=== PATIENT | female | born 1975 | race Caucasian/White ===

== ENCOUNTER 2018-07-23 22:51 | Observation (INO) | payer BC ==
[2018-07-23] MEDS ORDERED: Al Hydrox/Mg Hydrox/Simet LIQ* 30 ML UDC PO ONE (23:14)
[2018-07-23] MEDS ORDERED: Famotidine TAB* 20 MG PO ONE (23:14)
[2018-07-23] MEDS ORDERED: Sucralfate TAB* 1 GM PO ONE (23:14)
[2018-07-23 23:34] LABS: ABS Eosinophils 0.1 10^3/ul (0-0.6); ABS Lymphocytes 0.6 10^3/ul (1.0-4.8); ABS Monocytes 0.6 10^3/ul (0-0.8); ABS Neutrophils 6.2 10^3/ul (1.5-7.7); Eosinophil % 1.4 %; Hematocrit 41 % (35-47); Hemoglobin 13.8 g/dL (12.0-16.0); Lymphocyte % 8.5 %; Mean Corpuscular HGB Conc 34 g/dL (31-36); Mean Corpuscular Hemoglobin 31 pg (27-31); Mean Corpuscular Volume 91 fL (80-97); Nucleated Red Blood Cells % 0.1; Platelet Count 270 10^3/uL (150-450); Red Cell Distribution Width 14 % (10.5-15); White Blood Count 7.6 10^3/uL (3.5-10.8)
[2018-07-23 23:40] LABS: INR 0.96 (0.82-1.09)
[2018-07-23 23:54] LABS: ALT 352 U/L (7-52); AST 75 U/L (13-39); Albumin 4.5 g/dL (3.2-5.2); Albumin/Globulin Ratio 1.6 (1-3); Alkaline Phosphatase 136 U/L (34-104); Anion Gap 5 mmol/L (2-11); BUN/Creatinine Ratio 14.3 (8-20); Blood Urea Nitrogen 13 mg/dL (6-24); C Reactive Protein 3.12 mg/L (<8.01); CO2 Carbon Dioxide 27 mmol/L (22-32); Calcium 9.5 mg/dL (8.6-10.3); Chloride 107 mmol/L (101-111); EGFR African American 82.4 (>60); EGFR Non-African American 68.1 (>60); Globulin 2.8 g/dL (2-4); Glucose 107 mg/dL (70-100); Potassium 3.9 mmol/L (3.5-5.0); Sodium 139 mmol/L (135-145); Total Protein 7.3 g/dL (6.4-8.9)
[2018-07-24] LABS: HCG Pregnancy < 0.60 mIU/mL
--- NOTE | 2018-07-24 00:05 | ED ---
GI/ HPI - HPI Summary HPI Summary: Patient is a 42 year old female who presents today with intermittent RUQ pain and nausea x 3 weeks that occurs after eating fatty meals. Pain radiates intermittently to her back. She developed lower abdominal pain today with mild lightheadedness and near-syncope, prompting her to come to the ED. She denies fever, vomiting, or diarrhea. She denies family hx of gallbladder disease. No prior hx of pancreatitis or hepatitis. She drinks alcohol occasionally and last drank alcohol a few days ago. Pt denies any prior abdominal surgeries. - History of Current Complaint Chief Complaint: EDAbdPain Time Seen by Provider: 07/23/18 23:59 Stated Complaint: ABD PAIN, LIGHT HEADED, ARM NUMBNESS PER PT Hx Obtained From: Patient Onset/Duration: Started Weeks Ago - 3 Timing: Intermittent Severity: Mild Current Severity: None Pain Intensity: 0 Associated Signs and Symptoms: Positive: Dizziness, Nausea. Negative: Hematemesis, Back Pain, Syncope, Vomiting, Diarrhea Aggravating Factor(s): Food - Allergy/Home Medications Allergies/Adverse Reactions: Allergies Allergy/AdvReac Type Severity Reaction Status Date / Time No Known Allergies Allergy Verified 07/23/18 23:12 PMH/Surg Hx/FS Hx/Imm Hx Endocrine/Hematology History: Denies: Hx Diabetes GI History: Denies: Hx Gall Bladder Disease, Hx Gastroesophageal Reflux Disease, Other GI Disorders - pancreatitis, hepatitis Psychiatric History: Reports: Hx Anxiety Infectious Disease History: No Infectious Disease History: Denies: Traveled Outside the [place] in Last 30 Days - Family History Family History: No gallbladder disease. - Social History Occupation: Employed Full-time Alcohol Use: Occasionally Hx Substance Use: No Hx Tobacco Use: No Review of Systems Negative: Fever Positive: Abdominal Pain, Nausea. Negative: Vomiting, Diarrhea Positive: Myalgia - back pain Neurological: Other - Lightheadedness. Positive: Syncope - near All Other Systems Reviewed And Are Negative: Yes Physical Exam Triage Information Reviewed: Yes Vital Signs On Initial Exam: Initial Vitals Temp Pulse Resp BP Pulse Ox 98.6 F 65 16 164/81 100 07/23/18 23:05 07/23/18 23:05 07/23/18 23:05 07/23/18 23:05 07/23/18 23:05 Vital Signs Reviewed: Yes Appearance: Positive: Well-Appearing, No Pain Distress Skin: Positive: Warm Head/Face: Positive: Normal Head/Face Inspection Eyes: Positive: Normal ENT: Positive: Normal ENT inspection Respiratory/Lung Sounds: Positive: Clear to Auscultation Cardiovascular: Positive: RRR. Negative: Murmur, Rub Abdomen Description: Positive: Nontender, No Organomegaly, Soft. Negative: Distended, McBurney's Point Tenderness, Peritoneal Signs Bowel Sounds: Positive: Present Musculoskeletal: Positive: Normal Neurological: Positive: Normal Psychiatric: Positive: Normal Diagnostics - Vital Signs Vital Signs Temp Pulse Resp BP Pulse Ox 07/23/18 23:05 98.6 F 65 16 164/81 100 - Laboratory Lab Results: Lab Results 07/23/18 07/23/18 07/23/18 Range/Units 23:26 23:26 23:26 WBC 7.6 (3.5-10.8) 10^3/uL RBC 4.50 (3.70-4.87) 10^6 /uL Hgb 13.8 (12.0-16.0) g/dL Hct 41 (35-47) % MCV 91 (80-97) fL MCH 31 (27-31) pg MCHC 34 (31-36) g/dL RDW 14 (10.5-15) % Plt Count 270 (150-450) 10^3/uL MPV 7.0 L (7.4-10.4) fL Neut % (Auto) 81.6 % Lymph % (Auto) 8.5 % [place] % (Auto) 7.9 % Eos % (Auto) 1.4 % Baso % (Auto) 0.6 % Absolute Neuts (auto) 6.2 (1.5-7.7) 10^3/ul Absolute Lymphs (auto) 0.6 L (1.0-4.8) 10^3/ul Absolute Monos (auto) 0.6 (0-0.8) 10^3/ul Absolute Eos (auto) 0.1 (0-0.6) 10^3/ul Absolute Basos (auto) 0.0 (0-0.2) 10^3/ul Absolute Nucleated RBC 0.0 10^3/ul Nucleated RBC % 0.1 INR (Anticoag Therapy) (0.82-1.09) Sodium 139 (135-145) mmol/L Potassium 3.9 (3.5-5.0) mmol/L Chloride 107 (101-111) mmol/L Carbon Dioxide 27 (22-32) mmol/L Anion Gap 5 (2-11) mmol/L BUN 13 (6-24) mg/dL Creatinine 0.91 (0.51-0.95) mg/dL Est GFR ( Amer) 82.4 (>60) Est GFR (Non-Af Amer) 68.1 (>60) BUN/Creatinine Ratio 14.3 (8-20) Glucose 107 H (70-100) mg/dL Lactic Acid 0.6 (0.5-2.0) mmol/L Calcium 9.5 (8.6-10.3) mg/dL Total Bilirubin 0.60 (0.2-1.0) mg/dL AST 75 H (13-39) U/L ALT 352 H (7-52) U/L Alkaline Phosphatase 136 H (34-104) U/L Troponin I 0.00 (<0.04) ng/mL C-Reactive Protein 3.12 (<8.01) mg/L Total Protein 7.3 (6.4-8.9) g/dL Albumin 4.5 (3.2-5.2) g/dL Globulin 2.8 (2-4) g/dL Albumin/Globulin Ratio 1.6 (1-3) Lipase 59 (11.0-82.0) U/L Beta HCG, Quant < 0.60 mIU/mL 07/23/18 Range/Units 23:26 WBC (3.5-10.8) 10^3/uL RBC (3.70-4.87) 10^6 /uL Hgb (12.0-16.0) g/dL Hct (35-47) % MCV (80-97) fL MCH (27-31) pg MCHC (31-36) g/dL RDW (10.5-15) % Plt Count (150-450) 10^3/uL MPV (7.4-10.4) fL Neut % (Auto) % Lymph % (Auto) % [place] % (Auto) % Eos % (Auto) % Baso % (Auto) % Absolute Neuts (auto) (1.5-7.7) 10^3/ul Absolute Lymphs (auto) (1.0-4.8) 10^3/ul Absolute Monos (auto) (0-0.8) 10^3/ul Absolute Eos (auto) (0-0.6) 10^3/ul Absolute Basos (auto) (0-0.2) 10^3/ul Absolute Nucleated RBC 10^3/ul Nucleated RBC % INR (Anticoag Therapy) 0.96 (0.82-1.09) Sodium (135-145) mmol/L Potassium (3.5-5.0) mmol/L Chloride (101-111) mmol/L Carbon Dioxide (22-32) mmol/L Anion Gap (2-11) mmol/L BUN (6-24) mg/dL Creatinine (0.51-0.95) mg/dL Est GFR ( Amer) (>60) Est GFR (Non-Af Amer) (>60) BUN/Creatinine Ratio (8-20) Glucose (70-100) mg/dL Lactic Acid (0.5-2.0) mmol/L Calcium (8.6-10.3) mg/dL Total Bilirubin (0.2-1.0) mg/dL AST (13-39) U/L ALT (7-52) U/L Alkaline Phosphatase (34-104) U/L Troponin I (<0.04) ng/mL C-Reactive Protein (<8.01) mg/L Total Protein (6.4-8.9) g/dL Albumin (3.2-5.2) g/dL Globulin (2-4) g/dL Albumin/Globulin Ratio (1-3) Lipase (11.0-82.0) U/L Beta HCG, Quant mIU/mL Result Diagrams: 07/23/18 23:26 07/23/18 23:26 Lab Statement: Any lab studies that have been ordered have been reviewed, and results considered in the medical decision making process. - Ultrasound No standard instances Ultrasound Interpretation Completed By: Radiologist Summary of Ultrasound Findings: Gallbladder US: 1. Cholelithiasis with 2 large stones and some sludge. There is no gallbladder wall thickening and there is a negative sono De Luna's sign. 2. Otherwise negative right upper quadrant sonogram. ED physician reviewed radiology report. - EKG 23:20 Cardiac Rate: NL - 67 bpm EKG Rhythm: Sinus Rhythm ST Segment: Normal Summary of EKG Findings: Nl axis, nl intervals GIGU Course/Dx - Course Course Of Treatment: Patient with intermittent abdominal pain over the last several days with GI upset. Her LFTs are elevated and gallbladder ultrasound is consistent with gallstones and sludge. The common bile duct is upper limit of normal but there is no definite obstruction. Discussed with GI who would like to admit and have MRCP in the morning. Patient is otherwise stable at this point without pain. - Diagnoses Differential Diagnoses - Female: Other - Cholelithiasis, cholecystitis, cholangitis, choledocholithiasis, peptic ulcer disease, gastritis, pancreatitis Provider Diagnoses: Choledocholithiasis, Elevated LFTs - Physician Notifications Discussed Care Of Patient With: Kyle Wilkins Time Discussed With Above Provider: 00:47 Instructed by Provider To: Other - Have the pt admitted for MRCP. At 1:00 Dr. Carrasco accepts pt for admission. Discharge - Sign-Out/Discharge Documenting (check all that apply): Patient Departure - Admit Patient Received Moderate/Deep Sedation with Procedure: No - Discharge Plan Condition: Stable Disposition: ADMITTED TO [facility] Referrals: Robe Parnell MD [Primary Care Provider] - - Billing Disposition and Condition Condition: STABLE Disposition: Admitted to [facility] - Attestation Statements Document Initiated by Scribe: Yes Documenting Scribe: Amanda Escalante Provider For Whom John is Documenting (Include Credential): Alber Goins MD Scribe Attestation: Amanda Angel, scribed for Alber Goins MD on 07/24/18 at 0338. Scribe Documentation Reviewed: Yes Provider Attestation: The documentation as recorded by the Amanda mills accurately reflects the service I personally performed and the decisions made by me, Alber Goins MD Status of Scribe Document: Viewed
[2018-07-24] MEDS ORDERED: NS 0.9% 1000 ML** 1,000 ML IV SCH (01:00)
[2018-07-24] MEDS ORDERED: Ibuprofen TAB* 600 MG PO PRN (03:14)
[2018-07-24] MEDS ORDERED: Ondansetron INJ* 2 MG/ML VIAL IV PRN (03:16)
[2018-07-24 04:55] LABS: Albumin 4.1 g/dL (3.2-5.2); Albumin/Globulin Ratio 1.6 (1-3); Globulin 2.5 g/dL (2-4); Indirect Bilirubin 0.6 mg/dL (0.3-1.0); Total Bilirubin 0.8 mg/dL (0.2-1.0); Total Protein 6.6 g/dL (6.4-8.9); Urine Appearance Cloudy; Urine Bacteria Absent (Absent); Urine Bilirubin Negative (Negative); Urine Blood 2+ (Negative); Urine Color Yellow; Urine Glucose Negative (Negative); Urine Ketones Trace (Negative); Urine Nitrite Negative (Negative); Urine Protein Negative (Negative); Urine Red Blood Cell 1+(3-5/hpf) (Absent); Urine Specific Gravity 1.004 (1.010-1.030); Urine Squamous Epithelial Cell Present (Absent); Urine Urobilinogen Negative (Negative); Urine White Blood Cell Trace(0-5/hpf) (Absent)
--- NOTE | 2018-07-24 05:51 | HP ---
HISTORY AND PHYSICAL: DATE OF ADMISSION: 07/24/18 PRIMARY CARE PROVIDER: Dr. Dias, [facility]. HEALTHCARE PROXY: Designated as Torrie Lopes, is a friend. CODE STATUS: Full. SOURCE OF INFORMATION: History obtained from interview with the patient and discussion with ED physician. RELIABILITY: Very good. CHIEF COMPLAINT: Abdominal pain. HISTORY OF PRESENT ILLNESS: This is a 42-year-old female with 1-1/2 weeks of epigastric pain and back pain, felt unrelated, never had episode of indigestion , but had first episode of this epigastric pain, felt uncomfortable, could not sleep, was steady, described as an aching and intense, felt like maybe this could have been digestion, but it was not associated with nausea or vomiting. She went to sleep. This was resolved after waking up. This occurred 2 additional times in the last 1-1/2 weeks, described as an aching pain lasting for several hours. The last 2 episodes were less intense; neither was associated with nausea, vomiting, or diarrhea. She associates the prior 2 episodes with food intake. The second episode was associated with eating nachos and the third after eating eggs, tarts, and sausages on Sunday morning prior to presentation which she indicates were all fatty meals. She denies any weight loss or alcohol nor heavy alcohol intake. After the last events, 4 days prior to presentation, she felt her stomach was "off" with a mild pain consistently, worse with eating. She called her primary care provider, who was concerned for a cardiac event and directed her to present to the emergency room. 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 She was warned that she could by the [facility] SPECIALIST at [facility]. She was out later in the evening of presentation, felt lightheaded, similar to episodes in the past which were followed by fainting. She did not faint this time; however, did feel quite anxious, particularly in the setting of recent conversation with her PCP's office advising her of the risks of not proceeding to the emergency room. At the time of their conversation, she thought she may have had a mini panic attack and presented to the emergency room after her episode of feeling lightheaded while out. In the emergency room, she had no pain. She was found to have elevated LFTs with an ALT out of proportion to AST as well as an elevated alk phos. There was no evidence of biliary stasis. Her total bilirubin was 0.60. There was a conversation between Dr. Goins and Dr. Wilkins from gastroenterology. The recommendation per Dr. Goins from gastroenterology was to admit to the hospital for an MRCP. Plan further delineated below. PAST MEDICAL HISTORY: Includes anxiety and significant depression. She has an IUD. PAST SURGICAL HISTORY: No history of surgeries. MEDICATIONS: P.r.n. propranolol and clonazepam for anxiety, propranolol for social anxiety when talking to crowds. She takes B complex vitamin, holy basil capsules, and vitamin D [id number]. ALLERGIES: No known drug allergies. FAMILY HISTORY: Paternal grandfather with CVA and CAD. Maternal grandfather with CAD. SOCIAL HISTORY: No tobacco. Drinks between 1 and 2 bottles of wine per week. She is a teacher in [employer]. REVIEW OF SYSTEMS: As per HPI; otherwise, all other systems negative. PHYSICAL EXAMINATION GENERAL: Sitting up in bed, interactive, pleasant, in no apparent distress. VITAL SIGNS: In the emergency room, 164/81, heart rate 65, respiratory rate 16 , she is 100% on room air, T-max 98.6 degrees Fahrenheit. HEENT: Oropharynx is clear. She has moist mucous membranes. Sclerae are anicteric. She has non-elevated JVD. She has no cervical or supraclavicular lymphadenopathy. LUNGS: Clear to auscultation. HEART: She has regular rate and rhythm. No murmurs, rubs, or gallops. ABDOMEN: Soft, nontender, nondistended. EXTREMITIES: Warm and well perfused with no clubbing, cyanosis, or edema. NEUROLOGIC: She is alert and oriented x3. Her cranial nerves II through XII are intact. DIAGNOSTIC STUDIES/LAB DATA: Labs are reviewed. Total bili 0.6, AST 75, ALT 352, alk phos 136. Troponin-I 0.00, CRP is 3.1. Lipase is 59. White blood cell count is 7.6, hemoglobin 13.8, and platelets 270. Data reviewed. Ultrasound of her gallbladder, impression: Cholelithiasis with 2 large stones and some sludge. There is no gallbladder wall thickening and there is negative sono De Luna's sign. Otherwise, negative right upper quadrant sonogram. ASSESSMENT AND PLAN: This is a 42-year-old female presenting with episode of lightheadedness, near syncope in the setting of 2 weeks of worsening biliary colic. 1. Biliary colic with 2 large biliary stones in her gallbladder and abnormal LFTs. Recommendation for gastroenterology is for MRCP and if negative, would recommend removal of her gallbladder on a more urgent basis. If stone is evident in her biliary system, then obviously an ERCP would be in order. GI consultation as well tomorrow. 2. Anxiety, p.r.n. clonazepam. 3. Depression, on no home medications. 4. DVT prophylaxis, low risk. Ambulate ad charito. [id number]/CPS #: [id number] [facility]
--- NOTE | 2018-07-24 15:37 | PN ---
Subjective Date of Service: 07/24/18 Interval History: Pt is feeling well. No RUQ at this time. No SOB. No other issues. Objective Active Medications: Sodium Chloride (Ns 0.9% 1000 Ml) 1,000 mls @ 100 mls/hr IV PER RATE LUTHER Last Admin: 07/24/18 05:56 Dose: 100 mls/hr Ibuprofen (Motrin Tab*) 600 mg PO Q8H PRN PRN Reason: PAIN Ondansetron HCl (Zofran Inj*) 4 mg IV Q4H PRN PRN Reason: NAUSEA/VOMITING Vital Signs - 8 hr 07/24/18 07/24/18 07/24/18 08:03 08:17 11:05 Temperature 97.9 F 97.9 F Pulse Rate 72 79 Respiratory 16 16 16 Rate Blood Pressure 144/71 127/84 (mmHg) O2 Sat by Pulse 98 100 Oximetry 07/24/18 14:28 Temperature 97.6 F Pulse Rate 64 Respiratory 16 Rate Blood Pressure 115/64 (mmHg) O2 Sat by Pulse 100 Oximetry Oxygen Devices in Use Now: None Appearance: Young female sitting up in bed, NAD Eyes: No Scleral Icterus Ears/Nose/Mouth/Throat: Mucous Membranes Moist Respiratory: Symmetrical Chest Expansion and Respiratory Effort, Clear to Auscultation Cardiovascular: NL Sounds; No Murmurs; No JVD, RRR, No Edema Abdominal: NL Sounds; No Tenderness; No Distention Extremities: No Clubbing, Cyanosis Skin: No Nodules or Sclerosis Neurological: Alert and Oriented x 3 Result Diagrams: 07/23/18 23:26 07/23/18 23:26 Additional Lab and Data: Lab Results 07/23/18 07/23/18 07/23/18 Range/Units 23:26 23:26 23:26 WBC 7.6 (3.5-10.8) 10^3/uL RBC 4.50 (3.70-4.87) 10^6 /uL Hgb 13.8 (12.0-16.0) g/dL Hct 41 (35-47) % MCV 91 (80-97) fL MCH 31 (27-31) pg MCHC 34 (31-36) g/dL RDW 14 (10.5-15) % Plt Count 270 (150-450) 10^3/uL MPV 7.0 L (7.4-10.4) fL Neut % (Auto) 81.6 % Lymph % (Auto) 8.5 % [place] % (Auto) 7.9 % Eos % (Auto) 1.4 % Baso % (Auto) 0.6 % Absolute Neuts (auto) 6.2 (1.5-7.7) 10^3/ul Absolute Lymphs (auto) 0.6 L (1.0-4.8) 10^3/ul Absolute Monos (auto) 0.6 (0-0.8) 10^3/ul Absolute Eos (auto) 0.1 (0-0.6) 10^3/ul Absolute Basos (auto) 0.0 (0-0.2) 10^3/ul Absolute Nucleated RBC 0.0 10^3/ul Nucleated RBC % 0.1 INR (Anticoag Therapy) (0.82-1.09) Sodium 139 (135-145) mmol/L Potassium 3.9 (3.5-5.0) mmol/L Chloride 107 (101-111) mmol/L Carbon Dioxide 27 (22-32) mmol/L Anion Gap 5 (2-11) mmol/L BUN 13 (6-24) mg/dL Creatinine 0.91 (0.51-0.95) mg/dL Est GFR ( Amer) 82.4 (>60) Est GFR (Non-Af Amer) 68.1 (>60) BUN/Creatinine Ratio 14.3 (8-20) Glucose 107 H (70-100) mg/dL Lactic Acid 0.6 (0.5-2.0) mmol/L Calcium 9.5 (8.6-10.3) mg/dL Total Bilirubin 0.60 (0.2-1.0) mg/dL AST 75 H (13-39) U/L ALT 352 H (7-52) U/L Alkaline Phosphatase 136 H (34-104) U/L Troponin I 0.00 (<0.04) ng/mL C-Reactive Protein 3.12 (<8.01) mg/L Total Protein 7.3 (6.4-8.9) g/dL Albumin 4.5 (3.2-5.2) g/dL Globulin 2.8 (2-4) g/dL Albumin/Globulin Ratio 1.6 (1-3) Lipase 59 (11.0-82.0) U/L Beta HCG, Quant < 0.60 mIU/mL 07/23/18 Range/Units 23:26 WBC (3.5-10.8) 10^3/uL RBC (3.70-4.87) 10^6 /uL Hgb (12.0-16.0) g/dL Hct (35-47) % MCV (80-97) fL MCH (27-31) pg MCHC (31-36) g/dL RDW (10.5-15) % Plt Count (150-450) 10^3/uL MPV (7.4-10.4) fL Neut % (Auto) % Lymph % (Auto) % [place] % (Auto) % Eos % (Auto) % Baso % (Auto) % Absolute Neuts (auto) (1.5-7.7) 10^3/ul Absolute Lymphs (auto) (1.0-4.8) 10^3/ul Absolute Monos (auto) (0-0.8) 10^3/ul Absolute Eos (auto) (0-0.6) 10^3/ul Absolute Basos (auto) (0-0.2) 10^3/ul Absolute Nucleated RBC 10^3/ul Nucleated RBC % INR (Anticoag Therapy) 0.96 (0.82-1.09) Sodium (135-145) mmol/L Potassium (3.5-5.0) mmol/L Chloride (101-111) mmol/L Carbon Dioxide (22-32) mmol/L Anion Gap (2-11) mmol/L BUN (6-24) mg/dL Creatinine (0.51-0.95) mg/dL Est GFR ( Amer) (>60) Est GFR (Non-Af Amer) (>60) BUN/Creatinine Ratio (8-20) Glucose (70-100) mg/dL Lactic Acid (0.5-2.0) mmol/L Calcium (8.6-10.3) mg/dL Total Bilirubin (0.2-1.0) mg/dL AST (13-39) U/L ALT (7-52) U/L Alkaline Phosphatase (34-104) U/L Troponin I (<0.04) ng/mL C-Reactive Protein (<8.01) mg/L Total Protein (6.4-8.9) g/dL Albumin (3.2-5.2) g/dL Globulin (2-4) g/dL Albumin/Globulin Ratio (1-3) Lipase (11.0-82.0) U/L Beta HCG, Quant mIU/mL Assess/Plan/Problems-Billing Ms Aldridge is a 42 yo F who has no significant PMHx who presented to the ER with c /o 1.5 weeks of intermittent RUQ pain and was found to have large gallstones. - Patient Problems (1) Biliary colic Current Visit: Yes Status: Acute Code(s): K80.50 - CALCULUS OF BILE DUCT W/ O CHOLANGITIS OR CHOLECYST W/O OBST SNOMED Code(s): 19497802 Comment: Pt with likely biliary colic. With the elevated LFTs it is likely she passed a small stone. MRCP negative for stone in the CBD. GI recommends surgery evaluation for cholecystectomy. Page to Dr. Nick osorio. Start clear liquids for now. (2) DVT prophylaxis Current Visit: Yes Status: Acute Code(s): Z29.9 - ENCOUNTER FOR PROPHYLACTIC MEASURES, UNSPECIFIED SNOMED Code(s): 799161743 Comment: ambulation (3) Full code status Current Visit: Yes Status: Acute Code(s): Z78.9 - OTHER SPECIFIED HEALTH STATUS SNOMED Code(s): 471219241
--- NOTE | 2018-07-24 18:04 | PN ---
Progress Note - Progress Note Date of Service: 07/24/18 Note: Surgery Progress Note Please see full dictated H&P by Mando Sarabia, but briefly, patient is a healthy 42 yo F with a history of RUQ abdominal pain, increasing in severity over the weeks. She presented to the ED yesterday and was found to have cholelithiasis on US, normal WBC and elevated transaminitis and elevated alkaline phosphatase. MRCP today was normal. Patient feels well, denies pain. Abdomen non tender. She has biliary colic and should undergo laparoscopic cholecystectomy. It could possibly be added on tomorrow afternoon with Dr. Hagan depending on OR availability. Alternatively if OR is not available tomorrow she could be discharged and return as for outpatient surgery. I discussed surgery, risks, benefits and alternatives with the patient. Recommend NPO after midnight.
--- NOTE | 2018-07-24 23:04 | CONS ---
GASTROENTEROLOGY CONSULT REPORT: DATE OF CONSULT: 07/24/18 REQUESTING PROVIDER: Dr. Gema Dillard. REASON FOR CONSULT: Elevated LFTs. HISTORY OF PRESENT ILLNESS: Ms. Aldridge is a 42-year-old woman with a history of anxiety/depression, who presents with episodic abdominal pain over the past week and a half. Ms. Aldridge provides the history. She says that for the past week and a half she has had several episodes of severe abdominal pain. The first episode occurred approximately a week and a half ago and lasted for at least 6 hours. Pain was localized in the epigastrium with some radiation to the back. It is not associated with nausea or vomiting. Very similar symptoms occurred on Sunday morning and Sunday evening. She did recall eating some fattier food prior to these episodes. The pain was very similar, again occurring at the epigastrium with some radiations to the back. She also has had a mild "stomach ache" in her lower abdomen over the past few days, which did seem to be worsened by p.o. intake. She contacted her primary care physician to discuss the stomach discomfort as well the episodes of more severe pain. She was instructed to present to the ED as there was some thought that perhaps her symptoms may be cardiac in nature. Ms. Aldridge declined to come to the ED although she was given additional warning signs to watch for at home. Ms. Aldridge did notice some lightheadedness and feeling that she was about to faint on Sunday evening. She then presented to the ER for evaluation. In the ER, Ms. Aldridge was noted to have normal vital signs. Labs did demonstrate an elevated AST, ALT, alk phos. An ultrasound demonstrated gallstone. The patient had an MRCP performed, which again confirmed gallstones, which were quite large. No CBD stone appreciated. GI consulted. On interview, Ms. Aldridge states that her pain is improved as she has been largely n.p.o. Denies any specific complaints at the time of her interview. She has had no prior episodes of the abdominal pain prior to the past week and a half. No nausea or vomiting. No change in bowel movements. No fevers or chills. No recent high dose Tylenol use. No significant alcohol use. PAST MEDICAL HISTORY: Anxiety and depression. PAST SURGICAL HISTORY: None. MEDICATIONS: P.r.n. propranolol, clonazepam for anxiety, B complex vitamin, holy basil capsule, and vitamin D. ALLERGIES: None. FAMILY HISTORY: No known GI or liver disease. SOCIAL HISTORY: No tobacco use. Drinks between 1 to 2 bottles of wine per week. 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 REVIEW OF SYSTEMS: Complete review of systems were performed and negative except as above. PHYSICAL EXAM: Vital Signs: Afebrile, heart rate 75, blood pressure 148/85, 99 % on room air. General: Well-appearing woman. Several family members at bedside. No acute distress. HEENT: Mucous membranes moist. Anicteric sclerae. Cardiovascular: Regular rate and rhythm. Pulmonary: Breathing comfortably. Abdomen: Soft, nontender, nondistended. Extremities: No edema. Skin: No jaundice. Psych: Normal affect and behavior. DIAGNOSTIC STUDIES/LAB DATA: Labs reviewed. Labs on admission notable for normal white blood cell count, hemoglobin, and platelet count. Comprehensive panel demonstrates an AST of 75, ALT of 352, alk phos of 136. Bilirubin normal at 0.6. Lipase normal at 59. CRP not elevated at 3.12. Repeat labs today demonstrated an AST of 60, ALT of 292, alk phos of 133, and bilirubin of 0.8. Imaging: Gallbladder ultrasound on 07/23/18 demonstrated cholelithiasis with 2 large stones measuring up to 2.1 cm as well as some gallbladder sludge. No gallbladder wall thickening. CBD 3 to 4 mm. MRCP performed today demonstrated cholelithiasis with stones measuring up to 2.1 cm. There was no intra or extrahepatic ductal dilation or filling defects. The pancreatic duct was normal without peripancreatic inflammation. IMPRESSION AND RECOMMENDATION: Ms. Aldridge is a 42-year-old woman with a history of anxiety and depression, who was admitted with several episodes of abdominal pain suggestive of biliary colic. Laboratory workup has demonstrated a moderately elevated transaminase level as well as a mildly elevated alkaline phosphatase. These lab abnormalities do seem to be improving at recheck this morning. Imaging confirms 2 large gallstones as well as gallbladder sludge. No CBD dilation or evidence of choledocholithiasis. At this point, I do wonder if the patient had a CBD stone that she passed. No directed GI testing or procedures indicated at this point. I would recommend consulting Surgery for cholecystectomy. I would also recommend monitoring LFTs either inpatient or outpatient until liver enzymes resolve. I would expect that these numbers should continue to downtrend over the next several days. Thank you very much for this consult. Please contact GI if any further questions or concerns. We will be happy to see the patient in clinic if she has persistent elevations in her liver enzymes. [id number]/[facility] #: [id number] MTDD
--- NOTE | 2018-07-25 03:10 | CONS ---
CC: [facility] * SURGICAL CONSULTATION NOTE: DATE OF CONSULT: 07/24/18 ATTENDING SURGEON: Dr. Alyce Romero. CHIEF COMPLAINT: Abdominal pain. HISTORY OF PRESENT ILLNESS: This is a generally healthy 42-year-old female, who beginning about a week and a half ago experienced an episode of severe epigastric pain lasting about half of the night. There was some radiation to her back and some anorexia, but no nausea, vomiting. She felt warm, but did not actually take her temperature. She did not experience chills. She has had at least 2 additional episodes since then of similar pain and then has felt like she has had "stomach ache" for the past 4 to 5 days with some ongoing anorexia, but not much of the same epigastric pain. Last evening, she had some slight right upper quadrant pain, but also felt very lightheaded. Because of concern for other possible causes, she presented to the emergency department. She states that her pain at peak, it has been high has 8/10, but at present time is 0/10. She denies any change in color of her urine or any other urinary symptoms (she does have longstanding history of microscopic hematuria, which has been worked up). She did note that her stools were very light in color for a day or so after one of her attacks. There is no known family history of gallbladder disease. She has not had any prior abdominal surgeries. She was admitted through the ED late last evening. She underwent MRCP earlier today, which was positive for stones measuring up to 2.1 cm, but negative for common bile duct filling defect. A prior ultrasound did confirm the presence of 2 gallstones measuring 1.9 and 2.1 cm respectively. The gallbladder wall was measured at 3 mm and the common bile duct at 3 to 4 mm in diameter. PAST MEDICAL HISTORY: Past history of asthma, but no problems in recent years. Performance anxiety. She has a history of mitral valve prolapse. PAST SURGICAL HISTORY: Her only prior surgery is dental extractions. CURRENT MEDICATIONS: 1. Propranolol, dose not specified, p.r.n. prior to speaking or social engagements. 2. Clonazepam, dose not specified, also p.r.n. prior to anxiety-provoking speaking or social engagements. 3. She takes B complex daily. 4. Vitamin D. 5. Basil supplement. ALLERGIES: None known. FAMILY HISTORY: Negative for anesthesia problems, bleeding or clotting disorders. SOCIAL HISTORY: She lives with her son. She is employed as teacher. She denies use of tobacco. She drinks between 2 and 3 drinks 2 to 3 times per week and she denies any other recreational drug use. REVIEW OF SYSTEMS: General: No recent constitutional symptoms or acute illnesses other than described in HPI. Her weight has been relatively stable. HEENT: No problems reported. Cardiovascular: No recent chest pain, palpitations. She did experience some lightheadedness yesterday (she states that an EKG was normal and her troponin was 0). Respiratory: No chronic cough or shortness of breath. No exacerbations of her asthma history. She does not currently use any bronchodilator therapy. GI: As above per HPI. No additions. : Specifically no dysuria or gross hematuria. See also above per HPI. 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 She has not yet had a baseline mammogram, but is encouraged to strongly consider. No other problems reported. Endocrine: No diabetes or thyroid dysfunction. Remainder of review symptoms was negative. PHYSICAL EXAM: Height 5 feet 3 inches. Weight 138 pounds. Temperature 97.6, blood pressure 115/64, pulse 64, respirations 16, room air saturation 100%. General: Well-nourished, well-developed female, appearing comfortable, sitting up in bed and in no acute distress. Skin: Warm and dry. No suspicious rashes or lesions. HEENT: Pupils equal, round, and reactive. EOMs intact. No conjunctival pallor or scleral icterus. Oropharynx, mucous membranes moist. Teeth in good repair. No intraoral lesions. Neck: No lymphadenopathy, thyromegaly, or masses. Heart: Regular rate and rhythm. No murmur appreciated. Lungs: Clear to auscultation. No rales or wheezes. Breasts: Not examined. Abdomen: Bowel sounds present. Soft, nontender to palpation. No palpable masses or organomegaly. Negative De Luna's sign. Genitalia and rectal: Not done. Back: No spinous process or CVA tenderness. Extremities: No edema. Neurological: Grossly intact. DIAGNOSTIC STUDIES/LAB DATA: White blood cell count 7600, hemoglobin 13.8. Total bilirubin on admission 0.6 with repeat of 0.8, AST 75 with repeat of 60, ALT 352 with repeat of 292, alkaline phosphatase 136 with repeat of 133. Her CRP is normal at 3. Her beta hCG is negative at less than 0.6. Diagnostic imaging as noted above. IMPRESSION: Symptomatic cholelithiasis with recent episodes of biliary colic. PLAN: The patient was also seen by Dr. Romero. The patient would prefer if possible to undergo cholecystectomy during this admission and is inquiring if Dr. Hagan might be available to do that. I will check with him in the morning and add her on the OR schedule if it can be accommodated. Otherwise, the patient could be discharged tomorrow and scheduled as an outpatient for same- day surgery. The patient is in agreement with plan and findings and plan were conveyed to the hospitalist attending, Dr. Dillard. JOSE JUAN NEVAREZ [id number]/[facility] #: [id number] MELONY
[2018-07-25 07:06] LABS: Hematocrit 40 % (35-47); Hemoglobin 13.8 g/dL (12.0-16.0); Mean Corpuscular HGB Conc 34 g/dL (31-36); Mean Corpuscular Hemoglobin 31 pg (27-31); Mean Corpuscular Volume 90 fL (80-97); Mean Platelet Volume 6.8 fL (7.4-10.4); Platelet Count 259 10^3/uL (150-450); Red Blood Count 4.48 10^6 /uL (3.70-4.87); Red Cell Distribution Width 14 % (10.5-15); White Blood Count 4.7 10^3/uL (3.5-10.8)
[2018-07-25 07:31] LABS: Albumin 4.2 g/dL (3.2-5.2); Albumin/Globulin Ratio 1.6 (1-3); BUN/Creatinine Ratio 15.6 (8-20); Calcium 9.2 mg/dL (8.6-10.3); EGFR Non-African American 82.6 (>60); Globulin 2.6 g/dL (2-4); Potassium 3.9 mmol/L (3.5-5.0); Total Bilirubin 1.4 mg/dL (0.2-1.0); Total Protein 6.8 g/dL (6.4-8.9)
[2018-07-25] MEDS ORDERED: NS 0.9% 1000 ML** 1,000 ML IV SCH (07:45)
--- NOTE | 2018-07-25 08:50 | PN ---
Progress Note - Progress Note Date of Service: 07/25/18 Note: Surgery Progress Note S: Patient feels well this morning, no complaints. No pain. O: Vital Signs: Temp Pulse Resp BP Pulse Ox 97.7 F 67 20 121/78 100 07/25/18 07:27 07/25/18 07:27 07/25/18 08:34 07/25/18 07:27 07/25/18 07:27 Laboratory Results - last 24 hr 07/25/18 07/25/18 06:57 06:57 WBC 4.7 RBC 4.48 Hgb 13.8 Hct 40 MCV 90 MCH 31 MCHC 34 RDW 14 Plt Count 259 MPV 6.8 L Sodium 139 Potassium 3.9 Chloride 108 Carbon Dioxide 23 Anion Gap 8 BUN 12 Creatinine 0.77 Est GFR ( Amer) 100.0 Est GFR (Non-Af Amer) 82.6 BUN/Creatinine Ratio 15.6 Glucose 81 Calcium 9.2 Total Bilirubin 1.40 H AST 44 H ALT 217 H Alkaline Phosphatase 126 H Total Protein 6.8 Albumin 4.2 Globulin 2.6 Albumin/Globulin Ratio 1.6 Intake & Output 07/24/18 07/25/18 07/25/18 22:59 06:59 14:59 Intake Total 0 0 Balance 0 0 Intake: Oral 0 0 Physical exam: abdomen soft, NTND A/P: 42 F with biliary colic, transaminitis and now increasing Tbili despite normal MRCP yesterday. - Patient currently added on for possible lap irene in the afternoon (depending on OR availability) with Dr. Hagan, however, may have to trend bilirubin now that it is rising vs. monitor bilirubin post op - Discussed with patient
[2018-07-25] MEDS ORDERED: Midazolam* 1 MG/ML 2 ML VIAL (2 MG) ONE (11:54)
[2018-07-25] MEDS ORDERED: Rocuronium* 10 MG/ML VIAL ONE (11:54)
[2018-07-25] MEDS ORDERED: fentaNYL* 50 MCG/ML 5 ML VIAL (250 MCG VIAL) ONE (11:54)
[2018-07-25] MEDS ORDERED: Propofol* 10 MG/ML 20 ML BTL ONE (11:54)
[2018-07-25] MEDS ORDERED: Lidocaine 2% PF * 5 ML VIAL ONE (11:54)
[2018-07-25] MEDS ORDERED: ceFAZolin 2 GM PREMIX in ORs 2 GM/50 ML BAG IVPB ONE (13:20)
[2018-07-25] MEDS ORDERED: Buffered Lidocaine 1% SYRIN* 1 ML/SYRINGE INTRADERM ONE (13:47)
[2018-07-25] MEDS ORDERED: Dexamethasone IV* 4 MG/ML 1 ML (4 MG) IV SLOW PU ONE (13:47)
[2018-07-25] MEDS ORDERED: Lactated Ringers 1000 ML Bag* 1,000 ML IV SCH (14:00)
[2018-07-25] MEDS ORDERED: Acetaminophen IV 1GM/100ML * 1,000 MG/100 ML VIAL IVPB ONE (14:46)
[2018-07-25] MEDS ORDERED: PROCHLORPERAZINE INJ 5 MG/ML 2 ML VIAL IV PRN (14:46)
[2018-07-25] MEDS ORDERED: Naloxone* 0.4 MG/ML 1 ML VIAL IV PRN (14:46)
[2018-07-25] MEDS ORDERED: Ketorolac INJ* 30 MG/ML 1 ML VIAL IV PRN (14:46)
[2018-07-25] MEDS ORDERED: HYDROmorphone INJ1* 1 MG/ML SYRINGE IV PRN (14:46)
[2018-07-25] MEDS ORDERED: DiMENhydriNATE IV* 50 MG/ML VIAL IV PUSH PRN (14:46)
[2018-07-25] MEDS ORDERED: Bupivacaine 0.25% W/EPI* 10 ML SDV ONE (14:47)
[2018-07-25] MEDS ORDERED: EPHEDrine (Pressors)* 50 MG/ML VIAL ONE (15:14)
[2018-07-25] MEDS ORDERED: Ondansetron INJ* 2 MG/ML VIAL ONE (15:19)
[2018-07-25] MEDS ORDERED: Neostigmine Methylsulfate* 3 MG/3 ML SYRINGE ONE (15:47)
[2018-07-25] MEDS ORDERED: Glycopyrrolate IV* 0.2 MG/ML 1 ML VIAL ONE (15:48)
[2018-07-25] MEDS ORDERED: fentaNYL* 50 MCG/ML 2 ML VIAL (100 MCG VIAL) ONE (16:22)
[2018-07-25] MEDS ORDERED: Acetaminophen IV 1GM/100ML * 100 ML ONE (16:22)
[2018-07-25] MEDS: fentaNYL* 50 MCG/ML 2 ML VIAL (100 MCG VIAL) IV PRN ×2 (16:25→16:34)
[2018-07-25] MEDS ORDERED: Ketorolac INJ* 30 MG/ML 1 ML VIAL ONE (17:17)
[2018-07-25 17:19] VITALS: BP 98/85
[2018-07-25] MEDS ORDERED: Ondansetron ODT TAB* 4 MG ONE (18:22)
--- NOTE | 2018-07-25 20:56 | OP ---
CC: Dr. Parnell * DATE OF OPERATION: 07/25/18 - ROOM #[id number] DATE OF : 77 SURGEON: Milad Hagan MD BLUEPRINT CUTTER: Yamilex Noland NP. ANESTHESIOLOGIST: Dr. Morrow. ANESTHESIA: General anesthetic, local infiltration by the surgeon. PRE-OP DIAGNOSIS: Symptomatic cholelithiasis. POST-OP DIAGNOSIS: Symptomatic cholelithiasis. OPERATIVE PROCEDURE: Laparoscopic cholecystectomy DESCRIPTION OF PROCEDURE: The patient was supine on the operating table. After adequate general anesthetic, compression stockings, Hali Hugger warmer, and intravenous antibiotics, the abdomen was prepped with antiseptic, draped in a sterile fashion. Local infiltrative anesthesia was administered. Small umbilical incision was created. Blunt port cannula was placed. Insufflation was carried out with carbon dioxide, additional cannulae. A 12-mm subxiphoid and 5 mm right upper quadrant, right anterior axillary line were placed with small stab wounds under direct vision. The gallbladder had few adhesions that were readily taken down, then areolar tissue was taken down off the neck of the gallbladder and onto the cystic duct. There were an artery branch and a vein branch coming way up onto the gallbladder. The gallbladder was dissected about half way off the liver bed before confirming the anatomy and then these were doubly clipped and divided and the gallbladder was taken off the liver bed using electrocautery. Hemostasis was good. Irrigation was carried out and free fluid was suctioned. The gallbladder was removed through the subxiphoid port with no spillage. The operative field was again irrigated and free fluid was suctioned out and everything was in good condition. The cannulae were removed. Pneumoperitoneum was allowed to escape. The umbilical and epigastric fascia were closed with 0 Vicryl, skin with 5-0 Vicryl, in all cases followed by Steri -Strips. She was awakened, extubated and brought to recovery room in good condition. There are no complications. No drains. Pathologic specimen was gallbladder. Sponge and instrument counts correct. Estimated blood loss less than 30 mL. [id number]/[facility] #: [id number] [facility]
== END 2018-07-25 17:00 | disposition home or self-care (01) ==
LOC: ED 22:51 → MED 07-24 03:16
PROVIDERS: ADMIT Internal Medicine; ATTEND Hospitalist
DX: K80.20 Calculus of gallbladder without cholecystitis without obstruction (principal); R10.13 Epigastric pain; M54.9 Dorsalgia, unspecified; Z97.5 Presence of (intrauterine) contraceptive device; Z79.899 Other long term (current) drug therapy; Z86.79 Personal history of other diseases of the circulatory system
CPT/HCPCS: 36415; 74181; 76376; 76705; 80053; 80076; 81003; 81015; 83605; 83690; 84484; 84702; 85025; 85027; 85610; 86140; 87086; 88304; 93005; 96374; 99284; A9270-GY; G0378; J0690; J1885; J2250; J2405; J2704; J2710; J3010